=== PATIENT | male | born 1995 | race Two or more races ===

== ENCOUNTER 2021-08-26 20:37 | Emergency (ER) | payer SELFPAY ==
[~2021-08-26] VITALS: Ht 167.6 cm; Wt 58.5 kg
[2021-08-26 21:18] VITALS: BP 134/79
== END 2021-08-26 22:32 | disposition home or self-care (01) ==
LOC: ER 20:37
DX: F41.9 Anxiety disorder, unspecified (principal); R06.02 Shortness of breath
CPT/HCPCS: 99281

== ENCOUNTER 2021-08-27 17:33 | Emergency (ER) | payer SELFPAY ==
[~2021-08-27] VITALS: Ht 172.7 cm; Wt 57.0 kg
[2021-08-27 22:53] LABS: BASOPHILS % 0.3 % (0.0-2.0); EOSINOPHILS % 2.2 % (0.0-5.0); HEMATOCRIT. 47.8 % (42.0-52.0); LYMPHOCYTES % 19.3 % (20.0-50.0); MEAN CORPUSCULAR HEMOGLOBIN 28.2 pg (28.0-32.0); MEAN CORPUSCULAR VOLUME 84.2 fL (80.0-94.0); MEAN PLATELET VOLUME 9.1 fl (7.4-10.4); MONOCYTES % 7.1 % (2.0-8.0); NEUTROPHILS % 71.1 % (40.0-76.0); PLATELET 155 x1000/uL (130-400); RED BLOOD CELL COUNT 5.68 mill/uL (4.7-6.1); RED CELL DISTRIBUTION WIDTH 14.1 % (11.6-14.6)
[2021-08-27 23:05] LABS: CHLORIDE 104 mEq/L (98-107)
[2021-08-27 23:08] LABS: ETHANOL BLOOD < 10 mg/dL
[2021-08-28] MEDS ORDERED: LORAZEPAM 1MG TABLET PO ONE ×2 (01:30→02:30)
[2021-08-28] MEDS ORDERED: LORAZEPAM 2MG/ML CPJ IM ONE ×2 (05:00→13:45)
[2021-08-28] MEDS ORDERED: LORAZEPAM 2MG/ML CPJ IM NR (05:45)
[2021-08-28] MEDS ORDERED: FLUOXETINE HCL 10 MG CAPSULE PO SCH (16:00)
[2021-08-28] MEDS ORDERED: OLANZAPINE 10 MG/VIAL IM ONE (19:15)
[2021-08-28] MEDS ORDERED: BUSPIRONE HCL 5MG TABLET PO SCH (21:00)
[2021-08-29 08:14] LABS: CLARITY URINE CLEAR (CLEAR); COLOR URINE DARK YELLOW (YELLOW); KETONES URINE 1+ (NEGATIVE); LEUKOCYTE ESTERASE URINE NEGATIVE (NEGATIVE); NITRITE URINE NEGATIVE (NEGATIVE); OCCULT BLOOD URINE NEGATIVE (NEGATIVE); PROTEIN URINE NEGATIVE (NEGATIVE); SPECIFIC GRAVITY URINE 1.028 (1.005-1.030)
[2021-08-29 08:35] LABS: *AMPHETAMINES SCREEN URINE NEGATIVE (NEGATIVE); *BARBITURATES SCREEN URINE NEGATIVE (NEGATIVE); *BENZODIAZEPINES SCREEN URINE NEGATIVE (NEGATIVE); *COCAINE SCREEN URINE NEGATIVE (NEGATIVE); PHENCYCLIDINE URINE SCREEN NEGATIVE (NEGATIVE)
[2021-08-29 08:36] LABS: METHADONE URINE SCREEN NEGATIVE (NEGATIVE); OPIATES URINE SCREEN NEGATIVE (NEGATIVE)
[2021-08-29 08:38] LABS: CANNABINOID URINE SCREEN NEGATIVE (NEGATIVE)
[2021-08-29] MEDS ORDERED: BUSPIRONE HCL 5MG TABLET PO SCH (09:00)
[2021-08-29] MEDS ORDERED: OLANZAPINE 5MG TABLET PO SCH (09:00)
[2021-08-29] MEDS: FLUOXETINE HCL 10 MG CAPSULE PO SCH (10:03)
[2021-08-29] MEDS: OLANZAPINE 5MG TABLET PO SCH (10:03)
[2021-08-29] MEDS: BUSPIRONE HCL 5MG TABLET PO SCH (10:03)
[2021-08-30] MEDS: FLUOXETINE HCL 10 MG CAPSULE PO SCH (08:48)
[2021-08-30] MEDS: BUSPIRONE HCL 5MG TABLET PO SCH (08:48)
[2021-08-30] MEDS: OLANZAPINE 5MG TABLET PO SCH (08:48)
[2021-08-30 11:59] VITALS: BP 122/78
== END 2021-08-30 12:57 ==
LOC: ER 17:40
DX: F23 Brief psychotic disorder (principal); F22 Delusional disorders; F41.9 Anxiety disorder, unspecified; R45.851 Suicidal ideations; R45.1 Restlessness and agitation; Z20.822 Contact with and (suspected) exposure to COVID-19
CPT/HCPCS: 36415; 80053; 80305; 80320; 81003; 85025; 96372; 99285; C9803; J2060; J3490; U0003; U0005; G0480